=== PATIENT | male | born 1990 | race African-American/Black ===

== ENCOUNTER 2020-04-30 11:57 | Emergency (ER) | payer SELFPAY ==
[~2020-04-30] VITALS: Ht 165.1 cm; Wt 64.0 kg
[2020-04-30 12:01] VITALS: BP 138/77
[2020-04-30] MEDS ORDERED: FLUORESCEIN SODIUM 1MG/STRIP LEFTEYE ONE (12:30)
[2020-04-30] MEDS: IBUPROFEN 600MG TABLET PO ONE (12:36)
[2020-04-30] MEDS: ONDANSETRON 4MG ODT PO ONE (12:36)
== END 2020-04-30 13:15 | disposition home or self-care (01) ==
LOC: ER 12:21
DX: S40.012A Contusion of left shoulder, initial encounter (principal); S80.02XA Contusion of left knee, initial encounter; Y08.89XA Assault by other specified means, initial encounter; G43.909 Migraine, unspecified, not intractable, without status migrainosus; Y93.89 Activity, other specified; Y92.89 Other specified places as the place of occurrence of the external cause; Y99.8 Other external cause status; Z98.890 Other specified postprocedural states
CPT/HCPCS: 73030; 73562; 99284; Q0162

== ENCOUNTER 2020-05-30 12:33 | Emergency (ER) | payer MEDICAID ==
[~2020-05-30] VITALS: Ht 165.1 cm; Wt 64.0 kg
[2020-05-30] MEDS ORDERED: CYCLOBENZAPRINE 10MG TABLET PO ONE (13:15)
[2020-05-30] MEDS ORDERED: KETOROLAC 30MG/ML VIAL IM ONE (13:15)
[2020-05-30 13:29] VITALS: BP 102/70
== END 2020-05-30 13:52 | disposition home or self-care (01) ==
LOC: ER 12:46
DX: M54.5 Low back pain (principal)
CPT/HCPCS: 96372; 99283; J1885

== ENCOUNTER 2021-03-08 18:37 | Emergency (ER) | payer MEDICAID ==
[~2021-03-08] VITALS: Ht 165.1 cm; Wt 63.0 kg
[2021-03-08 18:47] VITALS: BP 130/82
[2021-03-11 04:07] LABS: NEISSERIA GONORRHOEAE NAA Negative (Negative)
== END 2021-03-08 21:46 | disposition home or self-care (01) ==
LOC: ER 18:37
DX: Z11.3 Encounter for screening for infections with a predominantly sexual mode of transmission (principal); Z98.890 Other specified postprocedural states
CPT/HCPCS: 87491; 87591; 99281

== ENCOUNTER 2023-02-13 10:36 | Emergency (ER) | payer MEDICAID ==
[~2023-02-13] VITALS: Ht 165.1 cm; Wt 60.0 kg
[2023-02-13 10:41] VITALS: O2SAT 99
[2023-02-13] MEDS ORDERED: CEFTRIAXONE SODIUM 500 MG/VIAL IM ONE (11:15)
[2023-02-13] MEDS ORDERED: AZITHROMYCIN 500 MG TABLET PO ONE (11:15)
[2023-02-13 11:37] LABS: CLARITY URINE TURBID (CLEAR); COLOR URINE YELLOW (YELLOW); GLUCOSE URINE NEGATIVE (NEGATIVE); KETONES URINE NEGATIVE (NEGATIVE); LEUKOCYTE ESTERASE URINE NEGATIVE (NEGATIVE); NITRITE URINE NEGATIVE (NEGATIVE); OCCULT BLOOD URINE NEGATIVE (NEGATIVE); PH URINE >=9.0 (4.5-8.0); PROTEIN URINE NEGATIVE (NEGATIVE); SPECIFIC GRAVITY URINE 1.017 (1.005-1.030)
[2023-02-13 11:41] LABS: RBC URINE NONE SEEN /hpf (0-2); SQUAMOUS EPITHELIAL CELL URINE NONE SEEN /lpf (RARE/1+); WBC URINE NONE SEEN /hpf (0-2); YEAST URINE NONE SEEN
[2023-02-13 12:01] LABS: AMORPHOUS SEDIMENT URINE 3+ /lpf; BACTERIA URINE FEW
[2023-02-13 12:40] VITALS: BP 128/68; PULSE 64; RESP 18; TEMP 98.7
[2023-02-15 09:09] LABS: CHLAMYDIA TRACHOMATIS NAA Negative (Negative); NEISSERIA GONORRHOEAE NAA Negative (Negative)
== END 2023-02-13 12:41 | disposition home or self-care (01) ==
LOC: ER 11:05
DX: Z11.3 Encounter for screening for infections with a predominantly sexual mode of transmission (principal)
CPT/HCPCS: 99283; 87491; 87591; 81003; 96372; J0696